=== PATIENT | male | born 1965 | race Two or more races ===

== ENCOUNTER 2020-05-24 18:10 | Observation (INO) ==
[2020-05-24] MEDS ORDERED: ONDANSETRON 4 MG/2 ML VIAL IV STA (19:05)
[2020-05-24] MEDS ORDERED: LACTATED RINGERS 1,000 ML IV STA (19:05)
[2020-05-24] MEDS ORDERED: MORPHINE 4 MG/1 ML VIAL IV STA (19:05)
[2020-05-24] MEDS ORDERED: DIPHTHERIA/TETANUS ADULT VACCINE 0.5 ML SYRINGE IM ONE (19:05)
[2020-05-24 19:34] LABS: INR 1.1; Partial Thromboplastin Time 27.7 SECS (23.9-33.8)
[2020-05-24 19:46] LABS: Alanine Aminotransferase 67 U/L (16-61); Albumin 3.7 G/DL (3.4-5.0); Alkaline Phosphatase 110 U/L (45-117); Amylase 63 U/L (25-115); Aspartate Amino Transferase 34 U/L (0-37); Blood Urea Nitrogen 18 MG/DL (7-18); Calcium 8.8 MG/DL (8.5-10.1); Estimated Glom Filtration Rate 65 ML/MIN; Glucose 283 MG/DL (74-106); Total Protein 8.2 G/DL (6.4-8.3)
[2020-05-24] MEDS ORDERED: HYDROmorphone 2 MG/1 ML VIAL IV PRN (20:20)
[2020-05-24] MEDS ORDERED: ONDANSETRON 4 MG/2 ML VIAL IV PRN (20:20)
[2020-05-24] MEDS ORDERED: KETOROLAC 10 MG TABLET PO PRN (20:20)
[2020-05-24 23:33] LABS: Basophils % 0.2 % (0.0-0.8); Hematocrit 47.2 VOL% (42.0-52.0); Hemoglobin 16.3 GM/DL (14.0-18.0); Immature Granulocytes % 0.6 %; Immature Granulocytes Absolute 0.12 #; Lymphocytes % 4.9 % (21.2-54.2); Mean Corpuscular HGB Conc 34.5 GM/DL (32-36); Mean Corpuscular Volume 88.4 FL (87-102); Mean Platelet Volume 10.4 FL (9.6-12.0); Neutrophils % 87.3 % (38.7-73.9); Platelet Count 234 T/CUMM (130-400); Red Blood Count 5.34 MC/CUMM (3.8-5.5); Red Cell Distribution Width 12.3 % (9.3-17.3); White Blood Count 19.5 T/CUMM (4-12)
[2020-05-24 23:54] LABS: Lymphocytes 13 % (20-55); Platelet Estimate Normal; Segmented Neutrophils 85 % (50-85); Total Cells Counted 100
[2020-05-25] MEDS: DEXTROSE 5% NACL 0.45% 1,000 ML IV SCH ×2 (00:01→10:09)
[2020-05-25 05:55] LABS: Basophils % 0.3 % (0.0-0.8); Eosinophils % 0.1 % (0.00-10.9); Hematocrit 43.1 VOL% (42.0-52.0); Hemoglobin 14.8 GM/DL (14.0-18.0); Immature Granulocytes % 0.5 %; Immature Granulocytes Absolute 0.07 #; Lymphocytes # 1.9 10*3/uL (1.4-4.0); Lymphocytes % 13.2 % (21.2-54.2); Mean Corpuscular HGB Conc 34.3 GM/DL (32-36); Mean Platelet Volume 11.2 FL (9.6-12.0); Monocytes % 9.7 % (1.7-12.7); Neutrophils % 76.2 % (38.7-73.9); Platelet Count 239 T/CUMM (130-400); Red Blood Count 4.79 MC/CUMM (3.8-5.5); Red Cell Distribution Width 12.3 % (9.3-17.3); White Blood Count 14.3 T/CUMM (4-12)
[2020-05-25 06:17] LABS: Albumin 2.9 G/DL (3.4-5.0); Bilirubin,Total 0.4 MG/DL (0.2-1.0); Calcium 8.2 MG/DL (8.5-10.1); Osmolality,Calculated 285.7 MOS/KG (273-304); Total Protein 6.7 G/DL (6.4-8.3)
[2020-05-25] MEDS ORDERED: PANTOPRAZOLE 40 MG TABLET PO SCH (09:00)
[2020-05-25 15:41] VITALS: BP 127/72
== END 2020-05-25 17:21 | disposition home or self-care (01) ==
LOC: N.EDINP 18:10 → N.ED 18:10 → N.3E 21:23
PROVIDERS: ADMIT Surgery; ATTEND Surgery